=== PATIENT | female | born 1965 | race Caucasian/White ===

== ENCOUNTER 2019-04-26 09:07 | Day surgery (SDC) | payer OTHER ==
[2019-04-26] VITALS (22 sets, daily range): BP systolic 114–148; BP diastolic 61–91; PULSE 68–92; RESP 7–26; Ht 162.6 cm; Wt 87.8 kg
[~2019-04-26] VITALS: Ht 162.6 cm; Wt 87.8 kg
[~2019-04-26 09:07] MED LIST: CEFAZOLIN 2 GM/50 ML (PMX) 50 ML IVPB ONE; DULO60CA60 PO; LEVO25TA50 PO; LISI10TA2 PO; PROP10TA6 PO; RANI150T5 PO; SOD CHLORIDE 0.9% 1,000 ML IV SCH
[2019-04-26] MEDS ORDERED: GLYCOPYRROLATE 0.4 MG INJ ONE (11:43)
[2019-04-26] MEDS ORDERED: CEFAZOLIN 1 GM INJ ONE (11:43)
[2019-04-26] MEDS ORDERED: NEOSTIGMINE 3 MG/3 ML SYRINGE ONE (11:43)
[2019-04-26] MEDS ORDERED: ROCURONIUM 50 MG INJ ONE (11:43)
[2019-04-26] MEDS ORDERED: PROPOFOL 20 ML ONE (11:43)
[2019-04-26] MEDS ORDERED: FENTAnyl 50 MCG/ML VIAL ONE (11:44)
[2019-04-26] MEDS ORDERED: MIDAZOLAM 1 MG/ML 2 ML INJ ONE (11:44)
[2019-04-26] MEDS ORDERED: DEXAMETHASONE 4 MG/ML 5 ML INJ ONE (11:45)
[2019-04-26] MEDS ORDERED: ONDANSETRON 4 MG INJ ONE (11:45)
[2019-04-26] MEDS ORDERED: ROPIVACAINE 0.5 % 30 ML VIAL ONE (12:26)
[2019-04-26] MEDS ORDERED: ONDANSETRON 4 MG INJ IV PRN (12:30)
[2019-04-26] MEDS ORDERED: ALBUTEROL 0.083% (NEB) 2.5 MG/3 ML AMP HHN PRN (12:30)
[2019-04-26] MEDS ORDERED: hydrALAzine 20 MG INJ IV PRN (12:30)
[2019-04-26] MEDS ORDERED: DIPHENHYDRAMINE 50 MG INJ IV PRN (12:30)
[2019-04-26] MEDS ORDERED: EPHEDrine 25 MG/5 ML SYG IV PRN (12:30)
[2019-04-26] MEDS ORDERED: FENTAnyl 50 MCG/ML VIAL IV PRN ×3 (12:30)
[2019-04-26] MEDS ORDERED: OXYCODONE/ACETAMINOPHEN (5/325) TAB PO PRN ×2 (12:30)
[2019-04-26] MEDS ORDERED: TRIMETHOBENZAMIDE 100 MG/ML VIAL IM PRN (12:30)
[2019-04-26] MEDS ORDERED: LABETALOL HCL 20MG INJ IV PRN (12:30)
[2019-04-26] MEDS ORDERED: HYDROmorphONE 1 MG/5 ML IV SYRINGE IV PRN ×3 (12:30)
[2019-04-26] MEDS ORDERED: MIDAZOLAM 1 MG/ML 2 ML INJ IV PRN (12:30)
[2019-04-26] MEDS ORDERED: IPRATROPIUM (NEB) 0.5 MG/2.5 ML AMP HHN PRN (12:30)
[2019-04-26] MEDS ORDERED: MEPERIDINE 25 MG INJ IV PRN (12:30)
[2019-04-26] MEDS ORDERED: KETOROLAC 30 MG INJ ONE (13:00)
[2019-04-26] MEDS ORDERED: HYDROCODONE/APAP (5/325) TAB PO ONE (14:30)
== END 2019-04-26 15:50 | disposition home or self-care (01) ==
LOC: SDS 09:07
PROVIDERS: ATTEND Surgery
DX: K80.10 Calculus of gallbladder with chronic cholecystitis without obstruction (principal); I10 Essential (primary) hypertension; E78.5 Hyperlipidemia, unspecified; E11.9 Type 2 diabetes mellitus without complications; E66.9 Obesity, unspecified
CPT/HCPCS: 82962; 88304; J0690; J1100; J1170; J1885; J2250; J2405; J2710; J2795; J3010